=== PATIENT | female | born 1975 | race Caucasian/White ===

== ENCOUNTER → 2017-05-14 | Outpatient (CLI) | payer OTHER, MEDICAID ==
[~2017-05-14] MED LIST: ACET160E28 PO; AMOX500C2; AMOX500C2 PO; C250T PO; CHOL200035 PO; CPRH4T PO; DOXY100C42 PO; ESCI5TAB; ESCT10T; FLUC150T2 PO; HYDR25CA PO; IBP600T1 PO; KCL10CCR PO; KETO10TA77 PO; LACT1CAP62 PO; LORA0.5T PO; MIRT15TA6; NYST1000 PO; ONDA4TAB8 PO; ONDA8TAB12 PO; ONDAN4ODT PO; ONDN4T; ONDN4T PO; ORPH100T PO; OXYC-12 PO; PANT40SU PO; PEDI300T11 PO; PNT40TEC; RABE20TA PO; RABE20TA27 PO; SCP1.5TD TD; SUCR1ORA5 PO
[2017-05-14 18:17] LABS: BASOPHILS # (AUTO) 0.1 10^3/uL (0.0-0.1); BASOPHILS % (AUTO) 1 % (0-10); EOSINOPHILS # (AUTO) 0.1 10^3/uL (0.0-0.3); EOSINOPHILS % (AUTO) 1 % (0-10); LYMPHOCYTES # (AUTO) 2.6 X 10^3 (1.0-4.0); LYMPHOCYTES % (AUTO) 23 % (12-44); MEAN CORPUSCULAR HEMOGLOBIN 33 PG (25-34); MEAN CORPUSCULAR HGB CONC 35 G/DL (32-36); MEAN CORPUSCULAR VOLUME 93 FL (80-99); MEAN PLATELET VOLUME 10.6 FL (7.4-10.4); MONOCYTES # (AUTO) 0.5 X 10^3 (0.0-1.0); MONOCYTES % (AUTO) 4 % (0-12); NEUTROPHILS # (AUTO) 7.8 X 10^3 (1.8-7.8); NEUTROPHILS % (AUTO) 71 % (42-75); PLATELET COUNT 221 10^3/uL (130-400); RED BLOOD COUNT 4.98 10^6/uL (4.35-5.85); RED CELL DISTRIBUTION WIDTH 12.9 % (10.0-14.5)
[2017-05-14 18:18] LABS: BILIRUBIN,URINE NEGATIVE (NEGATIVE); KETONES,URINE NEGATIVE (NEGATIVE); LEUKOCYTE ESTERASE ,URINE 1+ (NEGATIVE); NITRITE,URINE NEGATIVE (NEGATIVE); PH,URINE 7 (5-9); PROTEIN,URINE NEGATIVE (NEGATIVE); UROBILINOGEN,URINE NORMAL (NORMAL)
[2017-05-14 18:33] LABS: ALANINE AMINOTRANSFERASE 9 U/L (0-55); ALBUMIN 4.9 GM/DL (3.2-4.5); ANION GAP 9 MMOL/L (5-14); ASPARTATE AMINO TRANSFERASE 14 U/L (5-34); BILIRUBIN,TOTAL 0.3 MG/DL (0.1-1.0); BLOOD UREA NITROGEN 11 MG/DL (7-18); BUN/CREATININE RATIO 15; CALCIUM 9.6 MG/DL (8.5-10.1); CARBON DIOXIDE 24 MMOL/L (21-32); CHLORIDE 107 MMOL/L (98-107); CREATININE SERUM 0.71 MG/DL (0.60-1.30); GFR ESTIMATED > 60; GLUCOSE 115 MG/DL (70-105); LIPASE 16 U/L (8-78); SODIUM 140 MMOL/L (135-145); TOTAL PROTEIN 7.3 GM/DL (6.4-8.2)
[2017-05-14 18:34] LABS: WBC,URINE RARE /HPF
[2017-05-14 18:47] LABS: ERYTHROCYTE SEDIMENTATION RATE 1 MM/HR (0-20)
== END ==
LOC: LAB 17:54
PROVIDERS: ATTEND Internal Medicine
DX: R10.13 Epigastric pain (principal); R11.2 Nausea with vomiting, unspecified
CPT/HCPCS: 36415; 80053; 81000; 83690; 85025; 85652

== ENCOUNTER → 2017-05-15 | Outpatient (CLI) | payer OTHER, MEDICAID ==
[~2017-05-15] MED LIST changes: -HYDR25CA PO; +IOHEXOL 350 MG/ML 100 ML (OMNIPAQUE 350) VIAL IV ONE; +NS 100 ML (IVPB) BAG IV ONE; -NYST1000 PO; -ONDA4TAB8 PO; -PANT40SU PO; -SUCR1ORA5 PO; +diphenhydrAMINE 50 MG/ML INJ (BENADRYL) IM ONE; +diphenhydrAMINE 50 MG/ML INJ (BENADRYL) ONE
--- NOTE | 2017-05-15 12:51 | Diagnostic Imaging Report ---
PROCEDURE: CT abdomen and pelvis with and without contrast. TECHNIQUE: Precontrast acquisitions were acquired through the abdomen and pelvis. Multiple contiguous axial images were obtained through the abdomen and pelvis after the administration of intravenous contrast. INDICATION: Severe abdominal pain. 100 mL of Omnipaque 350 is administered intravenously. COMPARISON: 08/25/2012. FINDINGS: The lung bases appear clear. The liver demonstrates a 6.7 cm mass in the right hepatic lobe with adjacent smaller mass more anteriorly measuring 2.6 cm. There are other lesions also noted in a more central location within the liver. These lesions all demonstrate prominent enhancement on the early phase with features in favor of hemangiomas. The spleen, the adrenal glands, the gallbladder, and the pancreas appear unremarkable. The kidneys have symmetric enhancement and contrast excretion. There is no hydronephrosis. The abdominal aorta is normal in caliber. No para-aortic significantly enlarged lymph nodes seen. There is suggestion of hysterectomy. No pelvic mass. No significant free fluid or fluid collection in the abdomen or pelvis is seen. There is no bowel obstruction. The osseous structures appear grossly unremarkable. IMPRESSION: There are multiple hepatic masses, the largest in the right hepatic lobe is 6.7 cm in size and demonstrates features compatible with hemangiomas. Dictated by: Dictated on workstation # [id number]
== END ==
LOC: RAD 11:02
PROVIDERS: ATTEND Nurse Practitioner Family
DX: R10.84 Generalized abdominal pain (principal)
CPT/HCPCS: 74178

== ENCOUNTER → 2017-05-15 | Outpatient (CLI) | payer OTHER, MEDICAID ==
[~2017-05-15] MED LIST changes: -IOHEXOL 350 MG/ML 100 ML (OMNIPAQUE 350) VIAL IV ONE; -NS 100 ML (IVPB) BAG IV ONE; -diphenhydrAMINE 50 MG/ML INJ (BENADRYL) IM ONE; -diphenhydrAMINE 50 MG/ML INJ (BENADRYL) ONE
--- NOTE | 2017-05-15 10:36 | Diagnostic Imaging Report ---
PROCEDURE: US abdomen complete. TECHNIQUE: Multiple Real-time grayscale images were obtained over the abdomen in various projections. INDICATION: Severe abdominal pain. FINDINGS: The pancreas appears unremarkable. The liver demonstrates a 5.9 x 5.9 x 5.5 cm hyperechoic well defined mass in the right hepatic lobe. This was seen on the 05/11/2012 CT scan with similar overall size, likely related to a hemangioma. There is hepatopetal flow in the portal vein. The gallbladder demonstrates no stones or wall thickening. The CBD is 2 mm in caliber. The sonographic Benitez sign is reportedly negative. The spleen is 8.3 cm in length. The abdominal aorta and IVC visualized portions appear unremarkable. The right kidney is 11.3 and the left kidney is 10.1 cm in length. No hydronephrosis or focal lesion. No fluid collection or significant free fluid is seen in the abdomen. IMPRESSION: The 5.9 cm right hepatic lobe mass is stable from the 2012 CT scan, likely related to a hemangioma. Dictated by: Dictated on workstation # [id number]
== END ==
LOC: RAD 09:24
PROVIDERS: ATTEND Nurse Practitioner Family
DX: R16.0 Hepatomegaly, not elsewhere classified (principal); R10.13 Epigastric pain
CPT/HCPCS: 76700

== ENCOUNTER 2017-05-16 10:30 | Inpatient (IN) | payer OTHER, MEDICAID ==
[~2017-05-16] VITALS: Ht 152.4 cm; Wt 45.4 kg
[~2017-05-16 10:30] MED LIST changes: -ACET160E28 PO; -CATHETER FLUSH 10 ML SYR IV PRN; -DOXY100C42 PO; -FLUC150T2 PO; -HYDR25CA PO; -LACT1CAP62 PO; -NYST1000 PO; -ONDA4TAB8 PO; -ONDA8TAB12 PO; -PANT40SU PO; -PEDI300T11 PO; -RABE20TA27 PO; -SUCR1ORA5 PO
[2017-05-16 13:05] VITALS: BP 110/64
[2017-05-16] MEDS ORDERED: AA 4.25% W/LYTES IN D5W IV SOL 1,000 ML IV SCH (13:30)
[2017-05-16] MEDS ORDERED: fentaNYL INJECTION 100 MCG/2 ML AMP IV PRN (13:30)
[2017-05-16] MEDS ORDERED: CATHETER FLUSH 10 ML SYR IV PRN (13:30)
[2017-05-16] MEDS ORDERED: ONDA8TAB12 PO (14:19)
[2017-05-16] MEDS ORDERED: RABE20TA27 PO (14:19)
[2017-05-16] MEDS ORDERED: ACET160E28 PO (14:19)
[2017-05-16] MEDS ORDERED: DOXY100C42 PO (14:19)
[2017-05-16 14:21] LABS: THYROID STIMULATING HORMONE 0.7 UIU/ML (0.35-4.94)
[2017-05-16] MEDS ORDERED: FLUC150T2 PO (14:23)
[2017-05-16] MEDS ORDERED: PEDI300T11 PO (14:33)
[2017-05-16] MEDS ORDERED: LACT1CAP62 PO (14:33)
[2017-05-16] MEDS: MAGNESIUM CITRATE 300 ML BTL PO SCH ×2 (15:18→20:02)
[2017-05-16] MEDS: ONDANSETRON 4 MG/2 ML (SDV) Z0FRAN IV PRN ×2 (15:29→21:23)
[2017-05-16 16:00] VITALS: BP 109/56
[2017-05-16] MEDS ORDERED: hydrOXYzine (VISTARIL) 25 MG CAP PO PRN (16:30)
[2017-05-16] MEDS: NYSTATIN ORAL SUSP 5 ML UDC PO SCH (18:30)
[2017-05-16 19:38] VITALS: BP 110/75
[2017-05-16] MEDS: NYSTATIN CREAM (MYCOSTATIN) 30 GM TUBE TP SCH (20:02)
[2017-05-16] MEDS ORDERED: APAP 325 MG/10.15 ML LIQ (TYLENOL) UDC PO PRN (21:00)
[2017-05-16] MEDS ORDERED: APAP 325 MG/10.15 ML LIQ (TYLENOL) UDC ONE (21:05)
[2017-05-16 21:16] VITALS: BP 105/65
[2017-05-17] VITALS: BP 111/74
[2017-05-17] MEDS: NYSTATIN ORAL SUSP 5 ML UDC PO SCH ×4 (00:04→16:34)
[2017-05-17 04:00] VITALS: BP 99/65
[2017-05-17] MEDS: ONDANSETRON 4 MG/2 ML (SDV) Z0FRAN IV PRN ×2 (04:11→16:33)
[2017-05-17 08:00] VITALS: BP 95/58
[2017-05-17] MEDS ORDERED: ONDANSETRON 4 MG/2 ML (SDV) Z0FRAN IVP ONE (08:45)
[2017-05-17] MEDS ORDERED: HURRICAINE EXT TUBE (BENZOCAINE) ONE (09:10)
[2017-05-17] MEDS ORDERED: MIDAZOLAM 2 MG/2 ML (VERSED) VIAL ONE ×4 (09:10)
[2017-05-17] MEDS ORDERED: fentaNYL INJECTION 100 MCG/2 ML AMP ONE (09:10)
[2017-05-17] MEDS ORDERED: NS IV 500 ML 500 ML ONE (09:11)
[2017-05-17] MEDS ORDERED: NS IV 500 ML 500 ML IV PRN (09:45)
[2017-05-17] MEDS: fentaNYL INJECTION 100 MCG/2 ML AMP IVP PRN ×2 (10:10→10:16)
[2017-05-17] MEDS: MIDAZOLAM 2 MG/2 ML (VERSED) VIAL IVP PRN ×2 (10:17→10:20)
--- NOTE | 2017-05-17 10:35 | Conscious Sedation/ASA ---
Conscious Sedation Pre-Proced Time Reviewed: 10:02 ASA Class: 2 Airway Mallampati Classification: (brevig mission appropriate class) I. II. III, IV Lungs Heart ASA score ASA 1: a normal healthy patient ASA 2: a patient with a mild systemic disease (mid diabetes, controlled hypertension, obesity ASA 3: a patient with a severe systemic disease that limits activity (angina , COPD, prior Myocardial infarction) ASA 4: a patient with an incapacitating disease that is a constant threat to life (CHF, renal failure) ASA 5: a moribund patient not expected to survive 24 hrs. (ruptured aneurysm) ASA 6: a declared brain patient whose organs are being harvested. For emergent operations, add the letter E after the classification Grade 2 Sedation Plan: Discussed options with patient/fam Note The patient is an appropriate candidate to undergo the planned procedure, sedation, and anesthesia. The patient immediately re-assessed prior to indication. COLIN PATRICIA MD May 17, 2017 10:35 am
--- NOTE | 2017-05-17 10:41 | Endo Procedure Record ---
Endo Procedure Report Date of Procedure May 17, 2017 Surgeon (s) COLIN PATRICIA MD Post Procedure/Op Diagnosis hiatal hernia. Multiple gastric erosions. 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 Multiple erosions at the proximal duodenum Procedure Performed EGD with biopsy of antrum and Description of Procedure Anesthesia Type: Conscious Sedation Specimen(s) collected/removed antral and duodenal mucosa Description of the Procedure Indication for procedure: This lady has been investigated for upper abdominal pain and nausea and profound weight loss over the past several months. Evaluation of the gallbladder has been negative. Multiple hemangiomas of the liver had been discovered. As part of the ongoing evaluation, an upper endoscopy was felt to be reasonable. Informed consent was obtained after reviewing the procedure in detail. Description of the procedure: She was placed in left lateral disposition in the ICU and her vital signs were monitored; conscious sedation was achieved using Versed and fentanyl. Her oropharynx was anesthetized Cetacaine and the flexible gastroscope introduced down the esophagus, past the stomach into the proximal duodenum. Findings: Esophagus: A short hiatal hernia with very minimal esophagitis. Stomach: Multiple shallow erosions were found along the body and the distal aspect of the stomach. In addition, it 2 mm AV malformation without any surface bleeding was found at the antrum. Photodocumentation and an antral biopsy for H. pylori were obtained. Duodenum: Changes of multiple erosions were found along the first part. Biopsy was obtained. She tolerated the procedure well and was taken back to the nursing area in a stable condition by the impression ongoing epigastric pain and nausea. Multiple gastric erosions. Helicobacter status pending Copies To: WILMAN LOPEZ XAVIER M MD May 17, 2017 10:41 am
[2017-05-17] MEDS ORDERED: HURRICAINE EXT TUBE (BENZOCAINE) XX PRN (10:45)
[2017-05-17 12:00] VITALS: BP 93/55
[2017-05-17] MEDS: PANTOPRAZOLE 40 MG/10 ML (PROTONIX) VIAL IV SCH ×3 (12:53→21:00)
[2017-05-17] MEDS: ONDANSETRON 4 MG/2 ML (SDV) Z0FRAN IVP PRN ×2 (12:54→20:22)
[2017-05-17] MEDS: SUCRALFATE 1 GM (CARAFATE) TAB PO SCH ×2 (12:54→20:21)
[2017-05-17] MEDS: POTASSIUM CHLORIDE INJ 20 MEQ in D5 LR IV SOLUTION 1,000 ML IV SCH ×2 (12:55→21:21)
[2017-05-17] MEDS: NYSTATIN CREAM (MYCOSTATIN) 30 GM TUBE TP SCH ×3 (12:55→20:28)
[2017-05-17] MEDS ORDERED: hydrOXYzine (VISTARIL) 25 MG CAP PO PRN (13:15)
--- NOTE | 2017-05-17 13:27 | Consultation-Hospitalist ---
HPI History of Present Illness: HPI/Chief Complaint CC: Inability to eat HPI: This is a 41 [address] Desai'monica who presented s/p endoscopy with Dr. Tobias and could not be discharged home due to inability to eat. 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 Pt was tested somewhere for tick born illness. These results were mixed, first negative then positive Pt seems very ill and she wonders if she could have more testing Pt's mom is with her and has a list of questions Pt had 4 anxiety attacks last night and thought she was having a heart attack Patient Interview: I informed the pt that I may not have all the answers Pt states she was tested for [place] Spotted Fever at an ER then at [facility]. Pt states that the first test was negative, then at [facility], she was positive. At this point, pt decided to start seeing Dr. Desai; her first visit was last Friday05/14/17. Pt states that Dr. Desai first thought she was having issues with her gallbladder, but tests on her gallbladder, liver, and pancreas were all fine. Pt states that Dr. Desai then ordered a scope. Pt confirms that Dr. Desai placed her on Doxy for 6 weeks, which she states she was unable to complete because she felt sick while taking them (pt took 2 days worth then stopped). Pt states that Dr. Desai was not notified that she is no longer taking the Doxy. Pt states that Dr. Desai also suggested pain meds for her. Pt's mother wondered if she could have IV abx since she is not able to take PO Doxy. It was suggested that the pt see a specialist and pt was advised to discuss this with Dr. Desai. Pt confirms having a scope with Dr. Tobias but she states she has not had much of an appetite. Colonoscopy was not completed because the pt could not tolerate the Mg++. Pt states she has lost nearly 10 lbs. Pt confirms smoking but denies ETOH usage. 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 Physical exam stable. Labs look good Pt's mother states that the pt's issues first started in [place], [place]. When seen there, the pt was diagnosed with arthritis and given muscle relaxers. Pt's mother then took her to [facility], and states that they said similar things. Pt was advised to follow up with Dr. Desai. Pt's mother also states that she has thrush, we will continue Nystatin Pt asked if she needed to test for tick illness again and pt was advised to ask Dr. Desai about this. Pt states that she was also tested for Lupus Pt states she appreciates the meds given to her for anxiety. Pt does not want Xanax, but pt liked the Dilaudid. Pt confirms feeling depressed. Pt's mother states pt has lots of allergies. Scribed by Alicia Parra under the direct supervision of Dr. Russ. Source: patient, family, caregiver Exam Limitations: no limitations Date Seen 05/17/17 Attending Physician Marcial Tobias MD PCP Duane Desai DO Referring Physician Date of Admission May 16, 2017 at 12:58 Home Medications & Allergies Home Medications Reviewed patient Home Medication Reconciliation Form Allergies Allergies Coded Allergies amoxicillin (Verified Allergy, Severe, NAUSEA/ YEAST INFECTION/ MOUTH SORES, ) clavulanic acid (Verified Allergy, Severe, NAUSEA/ YEAST INFECTION/ MOUTH SORES, 05/16/17) iodine (Verified Allergy, Mild, 05/17/17) lorazepam (Verified Allergy, Unknown, 02/03/09) metoclopramide HCl (Verified Allergy, Unknown, 05/17/17) mirtazapine (Verified Allergy, Unknown, 02/03/09) Past [id number]-Srojeh Hx Patient Social History Marrital Status: single Employed/Student: unemployed Alcohol Use: Denies Use Recreational Drug Use: No Smoking Status: Current Everyday Smoker Type Used: Cigarettes Physical Abuse Screen: No Sexual Abuse: No Recent Foreign Travel: No Contact w/other who traveled: No Recent Hopitalizations: Yes (MONO, ANAPHYLAXIS) Recent Infectious Disease Expo: No Seasonal Allergies Seasonal Allergies: No Surgeries Yes (MOLES REMOVED, EGD) Adenoidectomy, Hysterectomy, Oophorectomy, Tonsillectomy Respiratory No Currently Using CPAP: No Currently Using BIPAP: No Cardiovascular No Neurological No Reproductive System Hx Reproductive Disorders: Yes 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 Genitourinary No Gastrointestinal Yes Gastroesophageal Reflux Musculoskeletal No Endocrine History of Endocrine Disorders: No HEENT History of HEENT Disorders: No Loss of Vision: Denies Hearing Impairment: Denies Cancer No Psychosocial History of Psychiatric Problem: Yes Behavioral Health Disorders: Anxiety, Depression Integumentary History of Skin or Integumenta: No Blood Transfusions History of Blood Disorders: No Adverse Reaction to a Blood Tr: No Review of Systems Constitutional: see HPI, dizziness, malaise, weakness EENTM: no symptoms reported Respiratory: no symptoms reported Cardiovascular: no symptoms reported Gastrointestinal: see HPI, loss of appetite, nausea, vomiting Genitourinary: decreased output Musculoskeletal: back pain Skin: no symptoms reported Psychiatric/Neurological: No Symptoms Reported All Other Systems Reviewed Negative Unless Noted: Yes Physical Exam Physical Exam Vital Signs Vital Sign - Last 12Hours 05/16/17 13:05 Temp 98.9 Pulse 99 Resp 20 B/P (MAP) 110/64 Pulse Ox 99 O2 Delivery Room Air Capillary Refill : General Appearance: No Apparent Distress, WD/WN, Chronically ill, Thin Eyes: Bilateral Eye Normal Inspection, Bilateral Eye PERRL HEENT: PERRL/EOMI, Normal ENT Inspection, Pharynx Normal Neck: Full Range of Motion, Normal Inspection, Non Tender, Supple, Carotid Bruit Respiratory: Chest Non Tender, Lungs Clear, Normal Breath Sounds, No Accessory Muscle Use, No Respiratory Distress Cardiovascular: Regular Rate, Rhythm, No Edema, No Gallop, No JVD, No Murmur, Normal Peripheral Pulses Gastrointestinal: Normal Bowel Sounds, No Organomegaly, No Pulsatile Mass, Non Tender, Soft Back: Normal Inspection, No CVA Tenderness, No Vertebral Tenderness Extremity: Normal Capillary Refill, Normal Inspection, Normal Range of Motion, Non Tender, No Calf Tenderness, No Pedal Edema Neurologic/Psychiatric: Alert, Oriented x3, No Motor/Sensory Deficits, Depressed Affect Skin: Normal Color, Warm/Dry Lymphatic: No Adenopathy Assessment/Plan Admission Diagnosis Inability to eat Nausea, acute on chronic for the past 6 months Weight loss Tick-borne illness per patient Thrush/esophagitis Assessment and Plan Plan: Follow up with Dr. Desai 05/19/17 to perform more w/u Stomach erosions treatment Junito Gutierrez at [place] Conferred with Dr. Tobias and apologized that I did not have much more to add to the case given no acute issue that can be resolved during this hospital stay. Pt needs more w/u and may need feeding tube if is still unable to eat as time passes. Diagnosis/Problems Diagnosis/Problems (1) Nausea and vomiting in adult Status: Chronic Assessment & Plan: Multiple stomach erosions on EGD placed on appropriate treatment (2) Weight loss Status: Chronic (3) Thrush Status: Acute Assessment & Plan: Nystatin Clinical Quality Measures DVT/VTE Risk/Contraindication: Risk Factor Score Per Nursin RFS Level Per Nursing on Admit: 2=Moderate FATIMAH RUSS DO May 17, 2017 13:26
[2017-05-17 15:39] VITALS: BP 93/59
[2017-05-17 19:59] VITALS: BP 93/61
[2017-05-17] MEDS ORDERED: PANTOPRAZOLE 40 MG/10 ML (PROTONIX) VIAL IV SCH (21:00)
[2017-05-18] VITALS: BP 88/53
[2017-05-18] MEDS: NYSTATIN ORAL SUSP 5 ML UDC PO SCH ×4 (00:36→16:44)
[2017-05-18] MEDS: ONDANSETRON 4 MG/2 ML (SDV) Z0FRAN IVP PRN ×5 (00:37→20:42)
[2017-05-18] MEDS: POTASSIUM CHLORIDE INJ 20 MEQ in D5 LR IV SOLUTION 1,000 ML IV SCH (07:22)
[2017-05-18] MEDS: SUCRALFATE 1 GM (CARAFATE) TAB PO SCH ×3 (07:47→20:42)
[2017-05-18 08:00] VITALS: BP 98/63
[2017-05-18] MEDS ORDERED: INFLUENZA TRIvalent 2017-2018 0.5 ML/45 MCG SYR IM ONE (09:00)
[2017-05-18] MEDS ORDERED: FAMOTIDINE 20 MG (PEPCID) TABLET PO PRN (09:00)
[2017-05-18] MEDS: PANTOPRAZOLE 40 MG/10 ML (PROTONIX) VIAL IV SCH (09:01)
[2017-05-18] MEDS: NYSTATIN CREAM (MYCOSTATIN) 30 GM TUBE TP SCH ×3 (09:13→20:44)
[2017-05-18] MEDS: D5 LR W/KCL 20 MEQ/L 1,000 ML IV SCH ×2 (09:47→18:11)
[2017-05-18] MEDS ORDERED: PANTOPRAZOLE 40 MG/10 ML (PROTONIX) VIAL IV NR (13:30)
--- NOTE | 2017-05-18 15:29 | Progress Note (SOAP) ---
Subjective Date Seen by Provider: May 18, 2017 Time Seen by Provider: 14:15 Subjective/Events-last exam nausea slightly improved. Appetite unchanged. Reports having had bowel movements. Review of Systems General: Fatigue HEENT: No Head Aches, No Eye Pain, No Ear Pain, No Dysphasia, No Sinus Congestion, No Post Nasal Drip, No Sore Throat Pulmonary: No Dyspnea, No Cough, No Pleuritic Chest Pain Cardiovascular: No: Chest Pain, Palpitations, Orthopnea, Paroxysmal Noc. Dyspnea, Edema, Lt Headedness Gastrointestinal: Nausea, Abdominal Pain Genitourinary: Other Musculoskeletal: No: other, neck pain, shoulder pain, arm pain, back pain, hand pain, leg pain, foot pain Neurological: No: Weakness, Numbness, Incoordination, Change in speech, Confusion, Seizures, Other Objective Exam Vital Signs Date Time Temp Pulse Resp B/P (MAP) Pulse Ox O2 Delivery O2 Flow Rate FiO2 05/18/17 08:00 98.2 66 20 98/63 99 Room Air 05/18/17 00:00 96.8 64 18 88/53 95 Room Air 05/17/17 19:59 97.2 64 20 93/61 99 Room Air 05/17/17 15:39 97.7 68 22 93/59 97 Room Air Capillary Refill : General Appearance: Anxious, Moderate Distress HEENT: Normal ENT Inspection Neck: Normal Inspection Cardiovascular: Regular Rate, Rhythm Gastrointestinal: non tender, soft Extremity: Normal Inspection Neurologic/Psychiatric: Alert, Oriented x3 Skin: Warm/Dry Other comments intermittent tearfulness Results Lab lady with ongoing epigastric abdominal pain nausea and weight loss. I have suggested that she be discharged and a GI evaluation sought at [facility]. In the interim, supportive measures would be prescribed. The patient expressed her intention to think about my recommendation and confirm back. Assessment/Plan Assessment/Plan Assess & Plan/Chief Complaint lady with ongoing epigastric pain and anorexia and nausea. We will obtain an outpatient GI evaluation at [facility]. Final Diagnosis weight loss, epigastric pain, nausea Clinical Quality Measures DVT/VTE Risk/Contraindication: Risk Factor Score Per Nursin RFS Level Per Nursing on Admit: 2=Moderate COLIN PATRICIA MD May 18, 2017 3:29 pm
[2017-05-18] MEDS ORDERED: ONDA8TAB12 PO (15:31)
[2017-05-18] MEDS ORDERED: SUCR1ORA5 PO (15:31)
[2017-05-18] MEDS ORDERED: PANT40SU PO (15:31)
[2017-05-18] MEDS ORDERED: HYDR25CA PO (15:31)
[2017-05-18] MEDS ORDERED: NYST1000 PO (15:39)
[2017-05-18 16:00] VITALS: BP 100/58
[2017-05-18] MEDS ORDERED: PANTOPRAZOLE 40 MG/10 ML (PROTONIX) VIAL IV PRN (19:30)
[2017-05-19] VITALS: BP 95/60
[2017-05-19] MEDS: NYSTATIN ORAL SUSP 5 ML UDC PO SCH ×2 (00:14→06:12)
[2017-05-19] MEDS: ONDANSETRON 4 MG/2 ML (SDV) Z0FRAN IVP PRN ×2 (00:15→05:04)
[2017-05-19] MEDS: D5 LR W/KCL 20 MEQ/L 1,000 ML IV SCH (05:04)
[2017-05-19 07:53] VITALS: BP 94/56
[2017-05-19] MEDS: NYSTATIN CREAM (MYCOSTATIN) 30 GM TUBE TP SCH (08:03)
[2017-05-19] MEDS: SUCRALFATE 1 GM (CARAFATE) TAB PO SCH (08:03)
[2017-05-19] MEDS ORDERED: ONDANSETRON 4 MG (ZOFRAN) ORAL DISSOLVE TAB ONE (08:41)
[2017-05-19] MEDS ORDERED: ONDA4TAB8 PO (08:45)
[2017-05-19] MEDS ORDERED: ONDANSETRON 4 MG (ZOFRAN) ORAL DISSOLVE TAB PO NR (08:45)
--- NOTE | 2017-05-19 16:24 | Discharge Summary ---
Diagnosis/Chief Complaint Date of Admission May 16, 2017 at 12:58 Date of Discharge May 19, 2017 at 10:25 Discharge Date: May 19, 2017 Discharge Time: 10:40 Admission Diagnosis Admission Diagnosis epigastric pain, weight loss nausea Discharge Diagnosis gastric erosions. weight loss Reason Hospital Visit admitted from the office with ongoing epigastric pain, nausea and profound weight loss over a 6 month. Thyroid function found to be within normal limits. Upper endoscopy was planned after intravenous fluid hydration Discharge Summary Procedures upper endoscopy revealed multiple gastric and duodenal erosions. Treated with IV Protonix Consultations Gen. medical consultation with Dr. Devika West Discharge Physical Examination Allergies: Coded Allergies: amoxicillin (Verified Allergy, Severe, NAUSEA/ YEAST INFECTION/ MOUTH SORES, 05/16/17) clavulanic acid (Verified Allergy, Severe, NAUSEA/ YEAST INFECTION/ MOUTH SORES, 05/16/17) iodine (Verified Allergy, Mild, 05/17/17) lorazepam (Verified Allergy, Unknown, 02/03/09) metoclopramide HCl (Verified Allergy, Unknown, 05/17/17) mirtazapine (Verified Allergy, Unknown, 02/03/09) Vitals & I&Os Vital Signs Date Time Temp Pulse Resp B/P (MAP) Pulse Ox O2 Delivery O2 Flow Rate FiO2 05/19/17 08:00 Room Air 05/19/17 07:53 98.9 57 12 94/56 97 Hospital Course Labs (last 24 hrs) Laboratory Tests 05/16/17 13:40: Thyroid Stimulating Hormone (TSH) 0.70, Free Thyroxine 1.05, Thyroxine (T4) 8.9 Pending Labs Laboratory Tests 05/16/17 13:40: Thyroid Stimulating Hormone (TSH) 0.70, Free Thyroxine 1.05, Thyroxine (T4) 8.9 Discussion & Recommendations intravenous fluids with electrolytes administered. Zofran Protonix and Hydroxyzine to manage her anxiety described. An outpatient evaluation by a precision assembler at [facility] scheduled Discharge Home Medications: Active Scripts Active Zofran Odt (Ondansetron) 4 Mg Tab.rapdis 4 Mg PO Q6H Nystatin 100,000 Unit/1 Ml Oral.susp 5 Ml PO Q6HR 5 Days Vistaril (Hydroxyzine Pamoate) 25 Mg Capsule 25 Mg PO TID PRN Carafate (Sucralfate) 1 Gm/10 Ml Oral.susp 1 Gm PO TID 9 Days Protonix (Pantoprazole Sodium) 40 Mg Granpkt.dr 40 Mg PO BID 60 Days Ondansetron HCl 8 Mg Tablet 4 Mg PO Q6H PRN TAKES 1/2 (8MG) TABLET Reported Probiotic (Lactobacillus Acidophilus) 1 Each Capsule 1 Cap PO DAILY Flintstones Multivit Chew Tab (Pediatric Multivit Comb #25/FA) 300 Mcg Tab.chew 300 Mcg PO DAILY Doxycycline Monohydrate 100 Mg Capsule 100 Mg PO BID 14 DAY THEARPY FILLED 05-10-17 Acetaminophen 160 Mg/5 Ml Elixir 15 Ml PO Q4H PRN Instructions to patient/family Please see electronic discharge instructions given to patient. Diagnosis/Problems Diagnosis/Problems (1) Nausea and vomiting in adult Status: Chronic Assessment & Plan: Multiple stomach erosions on EGD placed on appropriate treatment (2) Weight loss Status: Chronic (3) Thrush Status: Acute Assessment & Plan: Nystatin Clinical Quality Measures DVT/VTE Risk/Contraindication: Risk Factor Score Per Nursin RFS Level Per Nursing on Admit: 2=Moderate COLIN PATRICIA MD May 19, 2017 16:24
== END 2017-05-19 10:25 | disposition home or self-care (01) | DRG 384 ==
LOC: 4TH 12:58
PROVIDERS: ADMIT Surgery; ATTEND Surgery
PROC: 0DB78ZX Excision of Stomach, Pylorus, Via Natural or Artificial Opening Endoscopic, Diagnostic (ICD-10-PCS; principal; 2017-05-17 10:00)
DX: K25.7 Chronic gastric ulcer without hemorrhage or perforation (principal); K26.7 Chronic duodenal ulcer without hemorrhage or perforation; E86.0 Dehydration; Q27.33 Arteriovenous malformation of digestive system vessel; K44.9 Diaphragmatic hernia without obstruction or gangrene; B37.0 Candidal stomatitis; F41.9 Anxiety disorder, unspecified; K21.9 Gastro-esophageal reflux disease without esophagitis; F17.210 Nicotine dependence, cigarettes, uncomplicated
CPT/HCPCS: 36415; 84436; 84439; 84443

== ENCOUNTER → 2017-05-16 | Outpatient (CLI) | payer OTHER, MEDICAID ==
[~2017-05-16] MED LIST changes: +CATHETER FLUSH 10 ML SYR IV PRN; +HYDR25CA PO; +NYST1000 PO; +ONDA4TAB8 PO; +PANT40SU PO; +SUCR1ORA5 PO
--- NOTE | 2017-05-16 09:14 | Diagnostic Imaging Report ---
EXAMINATION: HIDA with EF measurements Indication: Abdominal pain TECHNIQUE: After the intravenous administration of 4.6 mCi of Tc 99m Choletec, imaging over the abdomen was obtained. This was followed by administration of Ensure orally to stimulate intrinsic CCK secretion, followed by continued imaging with ejection fraction measured. FINDINGS: There is homogeneous uptake in the liver with prompt bile duct and gallbladder filling seen. Bowel activity is seen at 20 minutes. Based on further imaging and gallbladder area of interest activity measurements after the administration of Ensure, the gallbladder ejection fraction is estimated at 44%. IMPRESSION: 1. Normal hepatobiliary uptake and Gallbladder filling. 2. Borderline gallbladder ejection fraction. Correlate clinically. Dictated by: Dictated on workstation # [id number]
== END ==
LOC: CARD 06:33
PROVIDERS: ATTEND Internal Medicine
DX: R10.13 Epigastric pain (principal)
CPT/HCPCS: 78227

== ENCOUNTER 2017-09-30 15:50 | Outpatient (RCR) | payer MEDICAID ==
[~2017-09-30 15:50] MED LIST changes: +ACET160E28 PO; +DOXY100C42 PO; +FLUC150T2 PO; +HYDR25CA PO; +LACT1CAP62 PO; +NYST1000 PO; +ONDA4TAB8 PO; +ONDA8TAB12 PO; +PANT40SU PO; +PEDI300T11 PO; +RABE20TA27 PO; +SUCR1ORA5 PO
== END 2017-12-04 11:38 | disposition home or self-care (01) ==
PROVIDERS: ATTEND Internal Medicine
DX: S43.422A Sprain of left rotator cuff capsule, initial encounter (principal); X58.XXXA Exposure to other specified factors, initial encounter

== ENCOUNTER → 2017-10-04 | Outpatient (CLI) | payer MEDICAID | LOC: RAD 10:27 | PROVIDERS: ATTEND Internal Medicine | DX: Z53.8 Procedure and treatment not carried out for other reasons (principal); S46.002A Unspecified injury of muscle(s) and tendon(s) of the rotator cuff of left shoulder, initial encounter ==

== ENCOUNTER → 2017-10-14 | Outpatient (CLI) | payer MEDICAID ==
--- NOTE | 2017-10-14 12:59 | Diagnostic Imaging Report ---
INDICATION: Left shoulder pain. Rotator cuff injury. COMPARISON: None. FINDINGS: Three radiographic views of left shoulder were obtained. There is no evidence of acute fracture or dislocation. Joint spaces are maintained. Note is made of extraosseous calcification projecting superior to the lateral margins of the humeral head, presumably within the supraspinatus tendon. Included portions of the left lung are clear. No unexpected radiopaque foreign bodies are seen. IMPRESSION: 1. No evidence of acute fracture or dislocation of left shoulder. 2. Probable calcific tendinosis of the supraspinatus. Findings can be seen with underlying hydroxyapatite disease. Clinical correlation recommended. Dictated by: Dictated on workstation # [id number]
== END ==
LOC: RAD 11:58
PROVIDERS: ATTEND Internal Medicine
DX: S46.002A Unspecified injury of muscle(s) and tendon(s) of the rotator cuff of left shoulder, initial encounter (principal)
CPT/HCPCS: 73030

== ENCOUNTER 2019-08-11 15:27 | Emergency (ER) | payer MEDICAID ==
[~2019-08-11] VITALS: Ht 155 cm; Wt 50.9 kg
[~2019-08-11 15:27] MED LIST changes: -ACET160E28 PO; +ACET160E50 PO
[2019-08-11] MEDS ORDERED: RX-AMOXICILLIN 500 MG CAP #3 PPK PO STA (15:53)
[2019-08-11] MEDS ORDERED: RX-IBUPROFEN 600 MG (MOTRIN) TAB PPK#4 PO STA (15:53)
[2019-08-11] MEDS ORDERED: LIDOCAINE 2% VISCOUS 15 ML UDC PO ONE (16:00)
[2019-08-11] MEDS ORDERED: IBUP-1780 PO (16:00)
[2019-08-11] MEDS ORDERED: AMOX500C2 PO (16:00)
--- NOTE | 2019-08-11 16:00 | ED EENT ---
History of Present Illness General Chief Complaint: Dental Problems/Pain Stated Complaint: DENTAL PAIN Nursing Triage Note: Pt amb to triage with c/o upper Lt molar discomfort. Pt reports onset of symptoms to be 08/10/19. Pt reports to be applying topical anbelsol with little relief. Denies fever. Source: patient Exam Limitations: no limitations History of Present Illness Date Seen by Provider: Aug 11, 2019 Time Seen by Provider: 15:55 Initial Comments To ER with left upper molar pain since last night. Her dentist is Dr. Dc. Timing/Duration: abrupt Severity: moderate Location: dental Associated Symptoms: tooth pain Allergies and Home Medications Allergies Coded Allergies: clindamycin (Verified Allergy, Intermediate, 08/11/19) cephalexin (Verified Allergy, Mild, 08/11/19) iodine (Verified Allergy, Mild, 05/17/17) lorazepam (Verified Allergy, Unknown, 02/03/09) metoclopramide HCl (Verified Allergy, Unknown, 05/17/17) mirtazapine (Verified Allergy, Unknown, 02/03/09) Home Medications Acetaminophen 160 Mg/5 Ml Elixir, 15 ML PO Q4H PRN for PAIN-MILD, (Reported) Amoxicillin 500 Mg Capsule, 500 MG PO TID Prescribed by: MARLEN OWEN on 08/11/19 1600 Doxycycline Monohydrate 100 Mg Capsule, 100 MG PO BID, (Reported) 14 DAY THEARPY FILLED 05-10-17 Hydroxyzine Pamoate 25 Mg Capsule, 25 MG PO TID PRN for ANXIETY Prescribed by: KOLBY ROSS on 05/18/17 153 Ibuprofen 800 Mg Tablet, 800 MG PO Q8H PRN for PAIN-MILD Prescribed by: MARLEN OWEN on 08/11/19 1600 Lactobacillus Acidophilus 1 Each Capsule, 1 CAP PO DAILY, (Reported) Nystatin 100,000 Unit/1 Ml Oral.susp, 5 ML PO Q6HR Prescribed by: KOLBY ROSS on 05/18/17 153 Ondansetron 4 Mg Tab.rapdis, 4 MG PO Q6H Prescribed by: LUCILLE HANSEN on 05/19/17 0845 Ondansetron HCl 8 Mg Tablet, 4 MG PO Q6H PRN for NAUSEA/VOMITING-1ST LINE TAKES 1/2 (8MG) TABLET Prescribed by: KOLBY ROSS on 05/18/17 153 Pantoprazole Sodium 40 Mg Granpkt.dr, 40 MG PO BID Prescribed by: KOLBY ROSS on 05/18/17 1531 Pediatric Multivit Comb #25/FA 300 Mcg Tab.chew, 300 MCG PO DAILY, (Reported) Sucralfate 1 Gm/10 Ml Oral.susp, 1 GM PO TID Prescribed by: KOLBY ROSS on 05/18/171530 Patient Home Medication List Home Medication List Reviewed: Yes Review of Systems Review of Systems Constitutional: see HPI Eyes: No Symptoms Reported Ears: No Symptoms Reported Nose: no symptoms reported Mouth: see HPI, pain Throat: no symptoms reported Respiratory: no symptoms reported Cardiovascular: no symptoms reported Musculoskeletal: no symptoms reported Past Frqirzq-Hfkbrh-Flqimv Hx Patient Social History Alcohol Use: Denies Use Recreational Drug Use: No Smoking Status: Current Everyday Smoker Type Used: Cigarettes 2nd Hand Smoke Exposure: Yes Recent Foreign Travel: No Contact w/Someone Who Travel: No Recent Infectious Disease Expo: No Recent Hopitalizations: Yes (MONO, ANAPHYLAXIS) Immunizations Up To Date Tetanus Booster (TDap): Unknown Seasonal Allergies Seasonal Allergies: No Past Medical History Surgeries: Yes (MOLES REMOVED, EGD) Adenoidectomy, Hysterectomy, Oophorectomy, Tonsillectomy Respiratory: No Currently Using CPAP: No Currently Using BIPAP: No Cardiac: No Neurological: No 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 0.0oz. 45.585737si; 21.00 BMI Method:Stated General Appearance: WD/WN, no apparent distress Eyes: bilateral eye normal inspection, bilateral eye PERRL, bilateral eye EOMI Ears: bilateral ear auricle normal, bilateral ear canal normal, bilateral ear TM normal Mouth/Throat: pharynx normal; No mandibular swelling, No maxillary swelling, No trismus; other (left upper molar with noted caries, no palpable fluctuant abscess. ) Neck: non-tender, full range of motion Respiratory: no respiratory distress, no accessory muscle use Gastrointestinal: normal bowel sounds, non tender Neurologic/Psychiatric: alert, normal mood/affect, oriented x 3 Skin: normal color, warm/dry Progress/Results/Core Measures Results/Orders My Orders Orders - MARLEN OWEN APRN Rx-Ibuprofen (Rx-Motrin) (08/11/19 15:53) Rx-Amoxicillin Capsule (Rx-Polymox Capsu (08/11/19 15:53) Lidocaine 2% Viscous 15 Ml (Xylocaine Vi (08/11/19 16:00) Medications Given in ED Current Medications Medications Dose Ordered Sig/Jerson Route Start Time Stop Time Status Last Admin Dose Admin Lidocaine HCl 5 ml ONCE ONCE PO 08/11/19 16:00 08/11/19 16:01 DC 08/11/19 16:00 5 ML Vital Signs/I&O 08/11/19 15:30 Temp 36.8 Pulse 79 Resp 17 B/P (MAP) 107/75 (86) Pulse Ox 99 O2 Delivery Room Air Blood Pressure Mean: 86 Departure Impression Primary Impression: Dental caries Additional Impression: Pain, dental Disposition: HOME, SELF-CARE Condition: Improved Departure-Patient Inst. Decision time for Depature: 15:58 Referrals: WILMAN LOPEZ DO (PCP/Family) Primary Care Physician Patient Instructions: Dental Pain (DC) Add. Discharge Instructions: Call Dr. Dc tomorrow morning to make an appointment to be seen. Medication as directed. All discharge instructions reviewed with patient and/or family. Voiced understanding. Scripts Benzocaine (Anesthetic Oral Gel) 14 Gm Gel..gram. 14 GM MM TID PRN for PAIN-MILD (1-4), #1 TUBE Prov: MARLEN OWEN APRN 08/11/19 Ibuprofen (Ibuprofen) 800 Mg Tablet 800 MG PO Q8H PRN for PAIN-MILD, #30 TAB Prov: MARLEN OWEN APRN 08/11/19 Amoxicillin (Amoxicillin) 500 Mg Capsule 500 MG PO TID, #21 CAP 0 Refills Prov: MARLEN OWEN APRN 08/11/19 MARLEN OWEN APRN Aug 11, 2019 16:00
[2019-08-11 16:06] VITALS: BP 107/75
[2019-08-11] MEDS ORDERED: BENZ14GE MM (16:07)
== END 2019-08-11 16:06 | disposition home or self-care (01) ==
LOC: EDUNIT# 15:27 → ER 15:28
DX: K02.9 Dental caries, unspecified (principal); F41.9 Anxiety disorder, unspecified; F32.9 Major depressive disorder, single episode, unspecified; K21.9 Gastro-esophageal reflux disease without esophagitis; F17.210 Nicotine dependence, cigarettes, uncomplicated; Z90.89 Acquired absence of other organs; Z90.710 Acquired absence of both cervix and uterus; Z88.1 Allergy status to other antibiotic agents; Z88.8 Allergy status to other drugs, medicaments and biological substances
CPT/HCPCS: 99283

== ENCOUNTER 2019-08-15 09:37 | Emergency (ER) | payer MEDICAID ==
[~2019-08-15] VITALS: Ht 160 cm; Wt 59.0 kg
[~2019-08-15 09:37] MED LIST changes: +BENZ14GE MM; +IBUP-1780 PO
[2019-08-15 09:40] VITALS: BP 122/81
[2019-08-15] MEDS ORDERED: LIDO15SO2 (09:48)
[2019-08-15] MEDS ORDERED: KETOROLAC 30 MG/ML VIAL IVP ONE (10:00)
[2019-08-15] MEDS ORDERED: cefTRIAXone FOR IV USE 1,000 MG in WATER (STERILE) FOR INJECTION 10 ML IV ONE (10:00)
[2019-08-15] MEDS ORDERED: LACTATED RINGERS 1,000 ML IV ONE (10:01)
--- NOTE | 2019-08-15 10:04 | ED EENT ---
History of Present Illness General Chief Complaint: Dental Problems/Pain Stated Complaint: DENTAL PAIN Nursing Triage Note: ARRIVED VIA AMB TO TRIAGE WITH COMPLAINTS OF LEFT UPPER DENTAL PAIN. STATES SHE WAS SEEN HERE ON AND THE AUGMENTIN IS NOT BETTER. UNABLE TO GET INTO A DENTIST. Source: patient, family Exam Limitations: no limitations History of Present Illness Date Seen by Provider: Aug 15, 2019 Time Seen by Provider: 09:54 Initial Comments Patient presents to ER by private conveyance with chief complaint that she's having dental pain from a tooth on her left upper maxilla and has tried multiple placed again with the dentist and cannot get in before 26 August. She was seen here Friday of last week, 5 days ago and started on amoxicillin. Since that time she feels the swelling is gotten worse since having a hard time swallowing fluids but no hard time breathing. She has not have any immunocompromise. She's been using ibuprofen and Tylenol as well as topical lidocaine with minimal relief. Allergies and Home Medications Allergies Coded Allergies: latex (Verified Allergy, Severe, rash, 08/15/19) clindamycin (Verified Allergy, Intermediate, 08/11/19) cephalexin (Verified Allergy, Mild, 08/11/19) iodine (Verified Allergy, Mild, 05/17/17) lorazepam (Verified Allergy, Unknown, 02/03/09) metoclopramide HCl (Verified Allergy, Unknown, 05/17/17) mirtazapine (Verified Allergy, Unknown, 02/03/09) amoxicillin (Verified Adverse Reaction, Severe, nausea, 08/15/19) clavulanic acid (Verified Adverse Reaction, Severe, nausea, 08/15/19) Patient Home Medication List Home Medication List Reviewed: Yes Review of Systems Review of Systems Constitutional: No chills, No diaphoresis Eyes: Denies Blindness, Denies Blurred Vision Ears: Denies Dizziness, Denies Pain Nose: denies clots, denies congestion Mouth: see HPI Throat: denies pain, denies swelling; painful swallowing, difficulty with fluids Respiratory: No cough, No short of breath Cardiovascular: No chest pain, No edema Past Hshicfn-Jjnsrf-Mcdrkz Hx Patient Social History Alcohol Use: Denies Use Recreational Drug Use: No Smoking Status: Current Everyday Smoker Type Used: Cigarettes 2nd Hand Smoke Exposure: Yes Recent Foreign Travel: No Contact w/Someone Who Travel: No Recent Infectious Disease Expo: No Recent Hopitalizations: Yes (MONO, ANAPHYLAXIS) Immunizations Up To Date Tetanus Booster (TDap): Unknown Seasonal Allergies Seasonal Allergies: No Past Medical History Surgeries: Yes (MOLES REMOVED, EGD) Adenoidectomy, Hysterectomy, Oophorectomy, Tonsillectomy Respiratory: No Currently Using CPAP: No Currently Using BIPAP: No Cardiac: No Neurological: No 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 0.0oz. 45.270502pp; 23.00 BMI Method:Stated General Appearance: WD/WN, no apparent distress Eyes: bilateral eye normal inspection, bilateral eye PERRL, bilateral eye EOMI Ears: bilateral ear auricle normal, bilateral ear canal normal, bilateral ear TM normal Nose: normal inspection; No active bleeding Mouth/Throat: other (soft tissue swelling of the buccal tissues left side, large 2 cm submandibular lymph nodes felt on the left side that is tender. Dental caries) Neck: full range of motion, supple, lymphadenopathy (L), tender lateral Cardiovascular: normal peripheral pulses, regular rate, rhythm Respiratory: no respiratory distress, no accessory muscle use Gastrointestinal: normal bowel sounds, non tender, soft Neurologic/Psychiatric: alert, normal mood/affect, oriented x 3 Skin: normal color, warm/dry Progress/Results/Core Measures Results/Orders Lab Results Laboratory Tests Test 08/15/19 10:10 Range/Units White Blood Count 9.6 4.3-11.0 10^3/uL Red Blood Count 4.60 4.35-5.85 10^6/uL Hemoglobin 14.7 11.5-16.0 G/DL Hematocrit 43 35-52 % Mean Corpuscular Volume 94 80-99 FL Mean Corpuscular Hemoglobin 32 25-34 PG Mean Corpuscular Hemoglobin Concent 34 32-36 G/DL Red Cell Distribution Width 13.4 10.0-14.5 % Platelet Count 173 130-400 10^3/uL Mean Platelet Volume 10.4 7.4-10.4 FL Neutrophils (%) (Auto) 73 42-75 % Lymphocytes (%) (Auto) 17 12-44 % Monocytes (%) (Auto) 7 0-12 % Eosinophils (%) (Auto) 2 0-10 % Basophils (%) (Auto) 0 0-10 % Neutrophils # (Auto) 7.0 1.8-7.8 X 10^3 Lymphocytes # (Auto) 1.7 1.0-4.0 X 10^3 Monocytes # (Auto) 0.7 0.0-1.0 X 10^3 Eosinophils # (Auto) 0.2 0.0-0.3 10^3/uL Basophils # (Auto) 0.0 0.0-0.1 10^3/uL Sodium Level 140 135-145 MMOL/L Potassium Level 4.1 3.6-5.0 MMOL/L Chloride Level 108 H 98-107 MMOL/L Carbon Dioxide Level 20 L 21-32 MMOL/L Anion Gap 12 5-14 MMOL/L Blood Urea Nitrogen 11 7-18 MG/DL Creatinine 0.67 0.60-1.30 MG/DL Estimat Glomerular Filtration Rate > 60 BUN/Creatinine Ratio 16 Glucose Level 108 H 70-105 MG/DL Calcium Level 9.0 8.5-10.1 MG/DL Corrected Calcium 8.8 8.5-10.1 MG/DL Total Bilirubin 0.5 0.1-1.0 MG/DL Aspartate Amino Transf (AST/SGOT) 12 5-34 U/L Alanine Aminotransferase (ALT/SGPT) 8 0-55 U/L Alkaline Phosphatase 53 40-136 U/L Total Protein 6.1 L 6.4-8.2 GM/DL Albumin 4.3 3.2-4.5 GM/DL My Orders Orders - BAL TORRES Ct Neck (Soft Tissue) W (08/15/19 10:00) Ketorolac Injection (Toradol Injection) (08/15/19 10:00) Ceftriaxone For Iv Use (Rocephin For I (08/15/19 10:00) Cbc With Automated Diff (08/15/19 10:01) Comprehensive Metabolic Panel (08/15/19 10:01) Ed Iv/Invasive Line Start (08/15/19 10:01) Lactated Ringers (Lr 1000 Ml Iv Solution (08/15/19 10:01) Lidocaine 2% Viscous 15 Ml (Xylocaine Vi (08/15/19 10:15) Iohexol Injection (Omnipaque 350 Mg/Ml 1 (08/15/19 11:00) Received Contrast (Hold Metformin- Contr (08/15/19 11:00) Ns (Ivpb) (Sodium Chloride 0.9% Ivpb Bag (08/15/19 11:00) Medications Given in ED Current Medications Medications Dose Ordered Sig/Jerson Route Start Time Stop Time Status Last Admin Dose Admin Ceftriaxone Sodium 1000 mg/ Sterile Water 10 ml @ 200 mls/hr ONCE ONCE IV 08/15/19 10:00 08/15/19 10:02 DC 08/15/19 10:16 200 MLS/HR Iohexol 75 ml ONCE ONCE IV 08/15/19 11:00 08/15/19 11:01 DC 08/15/19 11:01 75 ML Ketorolac Tromethamine 30 mg ONCE ONCE IVP 08/15/19 10:00 08/15/19 10:02 DC 08/15/19 10:16 30 MG Lactated Ringer's 1,000 ml @ 0 mls/hr Q0M ONCE IV 08/15/19 10:01 08/15/19 10:03 DC 08/15/19 10:16 1,000 MLS/HR Lidocaine HCl 5 ml ONCE ONCE PO 08/15/19 10:15 08/15/19 10:16 DC 08/15/19 10:15 5 ML Sodium Chloride 100 ml ONCE ONCE IV 08/15/19 11:00 08/15/19 11:01 DC 08/15/19 11:02 80 ML Vital Signs/I&O 08/15/19 09:40 Temp 36.6 Pulse 87 Resp 16 B/P (MAP) 122/81 (95) Pulse Ox 100 O2 Delivery Room Air Blood Pressure Mean: 95 Progress Progress Note : Time: 11:40 Progress Note Give her a shot of Toradol Rocephin check some labs and got a CT of her soft tissues of her neck with IV contrast. A liter fluids for contrast clearance and possible dehydration. She's feeling a little better. She has a large lymph node but no abscess seen on CT. Labs and vital signs are aseptic. We'll encourage sports drinks, protein drinks, give her some Tylenol with Codeine and hurricane spray as well as encourage her to follow-up with the dentist and extend her amoxicillin for another week. Diagnostic Imaging Diagonstic Imaging: CT Plain Films/CT/US/NM/MRI: abdomen, pelvis Comments NAME: MARIA L SMITH [facility] REC#: [id number] PT STATUS: REG ER : 1975 PHYSICIAN: BAL TORRES MD ADMIT DATE: 08/15/19/ER Draft Date of Exam:08/15/19 CT NECK (SOFT TISSUE) W PROCEDURE: CT neck soft tissue with contrast. TECHNIQUE: Multiple contiguous axial images were obtained through the neck after the administration of contrast. Auto Exposure Controls were utilized during the CT exam to meet ALARA standards for radiation dose reduction. INDICATION: Left upper dental pain. FINDINGS: No definite apical root abscesses are demonstrated. No destructive bony changes. There is some dental caries present with amalgam noted in the molars within the maxilla and mandible. No evidence of soft tissue edema or abscesses. The paranasal sinuses are clear. The parapharyngeal tissue planes appear normal. The parotid and submandibular glands appear normal. There is an enlarged lymph node anterior to the left submandibular gland measuring 1.5 x 0.7 cm. Epiglottis appears normal. Larynx is normal. There is benign calcification noted in the left lobe of the thyroid. There is good opacification of the cervical vessels following IV contrast. There is homogeneous enhancement of the thyroid gland. Reconstructed images show normal appearing cervical spine. IMPRESSION: 1. No evidence of dental abscesses or soft tissue abscess. 2. There is a single enlarged lymph node just anterior to the left submandibular gland measuring 1.5 x 0.7 cm. Dictated on workstation # [id number] Dict: 08/15/19 1107 Trans: 08/15/[address] [facility] [id number] Interpreted by: ARIEL BABCOCK MD Electronically signed by: Reviewed: Reviewed by Me Departure Impression Primary Impression: Dental abscess Additional Impression: Submandibular lymphadenopathy Disposition: 01 HOME, SELF-CARE Condition: Stable Departure-Patient Inst. Decision time for Depature: 11:35 Referrals: WILMAN LOPEZ DO (PCP/Family) Primary Care Physician Patient Instructions: Dental Pain (DC) Add. Discharge Instructions: Alternate warm and cold compresses as necessary for pain relief. Tylenol 325-650 mg every 6 hours as needed for pain. Choose ibuprofen 800 mg every 8 hours or naproxen 500 mg twice daily as needed for pain. Tylenol 1 tablet every 6 hours as needed for breakthrough pain. Viscous lidocaine 5 mL along with one puff of Hurricaine spray on a piece of gauze applied to complete the tooth for pain every 6 hours as needed. Salt water gargles to help decrease the swelling in your mouth. Drink sports drinks and protein drinks. Return to the ER immediately if you have difficulty breathing or cannot get fluids down. Keep your follow-up appointment with dentist. Amoxicillin 500 mg 3 times a day. All discharge instructions reviewed with patient and/or family. Voiced understanding. Scripts Naproxen (Naprosyn) 500 Mg Tablet 500 MG PO BID, #30 TAB 0 Refills Prov: BAL TORRES 08/15/19 Amoxicillin (Amoxicillin) 500 Mg Capsule 500 MG PO TID for 7 Days, #21 CAP 0 Refills Prov: BAL TORRES 08/15/19 Acetaminophen with Codeine (Tylenol with Codeine #3 Tablet) 1 Each Tablet 1 EACH PO Q6H PRN for PAIN-BREAKTHROUGH, #20 TAB 0 Refills Prov: BAL TORRES 08/15/19 [viscous lidocaine] 2% No Conflict Check 5 ML TOP Q6H PRN for PAIN-BREAKTHROUGH for 7 Days, #100 GM 0 Refills Prov: BAL TORRES 08/15/19 Benzocaine (Hurricaine) 60 Ml [place] 1 ML PUFF Q6H PRN for PAIN-BREAKTHROUGH for 7 Days, #1 EA 0 Refills Prov: BAL TORRES 08/15/19 BAL TORRES Aug 15, 2019 10:04
[2019-08-15] MEDS ORDERED: LIDOCAINE 2% VISCOUS 15 ML UDC PO ONE (10:15)
[2019-08-15 10:17] LABS: BASOPHILS % (AUTO) 0 % (0-10); EOSINOPHILS # (AUTO) 0.2 10^3/uL (0.0-0.3); EOSINOPHILS % (AUTO) 2 % (0-10); HEMATOCRIT 43 % (35-52); HEMOGLOBIN 14.7 G/DL (11.5-16.0); LYMPHOCYTES # (AUTO) 1.7 X 10^3 (1.0-4.0); LYMPHOCYTES % (AUTO) 17 % (12-44); MEAN CORPUSCULAR HEMOGLOBIN 32 PG (25-34); MEAN CORPUSCULAR HGB CONC 34 G/DL (32-36); MEAN CORPUSCULAR VOLUME 94 FL (80-99); MEAN PLATELET VOLUME 10.4 FL (7.4-10.4); MONOCYTES # (AUTO) 0.7 X 10^3 (0.0-1.0); MONOCYTES % (AUTO) 7 % (0-12); NEUTROPHILS % (AUTO) 73 % (42-75); PLATELET COUNT 173 10^3/uL (130-400); RED CELL DISTRIBUTION WIDTH 13.4 % (10.0-14.5); WHITE BLOOD COUNT 9.6 10^3/uL (4.3-11.0)
--- NOTE | 2019-08-15 10:30 | NUR ---
MOM WOULD LIKE PT ADMITTED BECAUSE PT HAS NOT ATE FOR FOUR DAYS. I TALKED WITH THEM THE NEED TO STAY HYDRATED. NOTIFIED THAT HER MOTHER WOULD LIKE HER ADMITTED.
[2019-08-15 10:41] LABS: ALANINE AMINOTRANSFERASE 8 U/L (0-55); ALBUMIN 4.3 GM/DL (3.2-4.5); ALKALINE PHOSPHATASE 53 U/L (40-136); BILIRUBIN,TOTAL 0.5 MG/DL (0.1-1.0); BUN/CREATININE RATIO 16; CARBON DIOXIDE 20 MMOL/L (21-32); CHLORIDE 108 MMOL/L (98-107); CREATININE SERUM 0.67 MG/DL (0.60-1.30); GFR ESTIMATED > 60; GLUCOSE 108 MG/DL (70-105); POTASSIUM 4.1 MMOL/L (3.6-5.0); SODIUM 140 MMOL/L (135-145); TOTAL PROTEIN 6.1 GM/DL (6.4-8.2)
[2019-08-15] MEDS ORDERED: NS 100 ML (IVPB) BAG IV ONE (11:00)
[2019-08-15] MEDS ORDERED: HOLD METFORMIN - RECEIVED CONTRAST 20 ML VIAL IV SCH (11:00)
[2019-08-15] MEDS ORDERED: IOHEXOL 350 MG/ML 100 ML (OMNIPAQUE 350) VIAL IV ONE (11:00)
--- NOTE | 2019-08-15 11:10 | NUR ---
UP TO BATHROOM.
--- NOTE | 2019-08-15 11:19 | Diagnostic Imaging Report ---
PROCEDURE: CT neck soft tissue with contrast. TECHNIQUE: Multiple contiguous axial images were obtained through the neck after the administration of contrast. Auto Exposure Controls were utilized during the CT exam to meet ALARA standards for radiation dose reduction. INDICATION: Left upper dental pain. FINDINGS: No definite apical root abscesses are demonstrated. No destructive bony changes. There is some dental caries present with amalgam noted in the molars within the maxilla and mandible. No evidence of soft tissue edema or abscesses. The paranasal sinuses are clear. The parapharyngeal tissue planes appear normal. The parotid and submandibular glands appear normal. There is an enlarged lymph node anterior to the left submandibular gland measuring 1.5 x 0.7 cm. Epiglottis appears normal. Larynx is normal. There is benign calcification noted in the left lobe of the thyroid. There is good opacification of the cervical vessels following IV contrast. There is homogeneous enhancement of the thyroid gland. Reconstructed images show normal appearing cervical spine. IMPRESSION: 1. No evidence of dental abscesses or soft tissue abscess. 2. There is a single enlarged lymph node just anterior to the left submandibular gland measuring 1.5 x 0.7 cm. Dictated by: Dictated on workstation # [id number]
--- NOTE | 2019-08-15 11:27 | NUR ---
IN TALKING TO PT AT THIS TIME.
[2019-08-15] MEDS ORDERED: AMOX500C2 PO (11:46)
[2019-08-15] MEDS ORDERED: ACET-789 PO (11:46)
[2019-08-15] MEDS ORDERED: [UNRECOGNIZED DRUG - CODE] PUFF (11:46)
[2019-08-15] MEDS ORDERED: viscous lidocaine TOP (11:46)
[2019-08-15] MEDS ORDERED: NAPR-1071 PO (11:47)
[2019-08-15] MEDS ORDERED: fentaNYL INJECTION 100 MCG/2 ML AMP IVP ONE (12:00)
== END 2019-08-15 10:31 | disposition home or self-care (01) ==
LOC: EDUNIT# 09:37 → ER 09:38
DX: K04.7 Periapical abscess without sinus (principal); R59.0 Localized enlarged lymph nodes; F41.9 Anxiety disorder, unspecified; F32.9 Major depressive disorder, single episode, unspecified; K21.9 Gastro-esophageal reflux disease without esophagitis; F17.210 Nicotine dependence, cigarettes, uncomplicated; Z91.040 Latex allergy status; Z90.89 Acquired absence of other organs; Z90.49 Acquired absence of other specified parts of digestive tract; Z88.1 Allergy status to other antibiotic agents; Z88.8 Allergy status to other drugs, medicaments and biological substances; Z90.710 Acquired absence of both cervix and uterus
CPT/HCPCS: 70491; 80053; 85025; 96361; 96374; 96375

== ENCOUNTER 2019-09-01 05:52 | Emergency (ER) | payer MEDICAID ==
[~2019-09-01] VITALS: Ht 154.9 cm; Wt 50.7 kg
[~2019-09-01 05:52] MED LIST changes: +ACET-789 PO; +LIDO15SO2; +NAPR-1071 PO; +[UNRECOGNIZED DRUG - CODE] PUFF; +viscous lidocaine TOP
[2019-09-01] MEDS ORDERED: KETOROLAC 30 MG/ML VIAL IVP STA (07:22)
--- NOTE | 2019-09-01 07:30 | ED EENT ---
History of Present Illness General Chief Complaint: Dental Problems/Pain Stated Complaint: DENTAL PAIN,SWOLLEN GLANDS,NAUSEA Nursing Triage Note: REPORTS MULTIPLE ER AND DENTIST VISITS AND IS STILL HAVING PROBLEMS SUCH PAIN, SWELLING IN HER JAW AND NECK, LYMPHNODES AND STATES SHE IS ALSO HAVING NECK PAIN BECCAUSE OF THE SWELLLING. PATIENT IS TEARFUL ALERT AND ORIENTED X4, ALSO REPORTS FEVER OF 100.0 LAST NIGHT. Source: patient Exam Limitations: no limitations History of Present Illness Date Seen by Provider: Sep 01, 2019 Time Seen by Provider: 07:05 Initial Comments Here with report of body aches, lymph node swelling around the neck, nausea and fever. She's had a protracted course due to dental procedures and dental issues starting before . She did have an extraction done over a week ago to the left lower posterior tooth. She is concerned that she still has infection and the tooth is being watched by Dr. Barrera. He saw her yesterday. She is currently on ciprofloxacin for antibiotics. She has been using ibuprofen on an occasional children's Tylenol. She did have to take Zofran this morning for nausea. Last dose of ibuprofen was last night. Does have mild cough and other upper respiratory symptoms. Timing/Duration: gradual, other (3-4 weeks) Severity: moderate Location: mouth, dental Associated Symptoms: cough, facial pain/swelling, fever, nasal congestion/drainage, sore throat, tooth pain Allergies and Home Medications Allergies Coded Allergies: latex (Verified Allergy, Severe, rash, 08/15/19) clindamycin (Verified Allergy, Intermediate, 08/11/19) cephalexin (Verified Allergy, Mild, 08/11/19) iodine (Verified Allergy, Mild, 05/17/17) lorazepam (Verified Allergy, Unknown, 02/03/09) metoclopramide HCl (Verified Allergy, Unknown, 05/17/17) mirtazapine (Verified Allergy, Unknown, 02/03/09) amoxicillin (Verified Adverse Reaction, Severe, nausea, 08/15/19) clavulanic acid (Verified Adverse Reaction, Severe, nausea, 08/15/19) Home Medications Acetaminophen with Codeine 1 Each Tablet, 1 EACH PO Q6H PRN for PAIN- BREAKTHROUGH Prescribed by: BAL TORRES on 08/15/19 1146 Amoxicillin 500 Mg Capsule, 500 MG PO TID Prescribed by: BAL TORRES on 08/15/19 1146 Benzocaine 60 Ml Wilson, 1 ML PUFF Q6H PRN for PAIN-BREAKTHROUGH Prescribed by: BAL TORRES on 08/15/19 1146 Naproxen 500 Mg Tablet, 500 MG PO BID Prescribed by: BAL TORRES on 08/15/19 1147 [viscous lidocaine] 2% , 5 ML TOP Q6H PRN for PAIN-BREAKTHROUGH Prescribed by: BAL TORRES on 08/15/19 1146 Patient Home Medication List Home Medication List Reviewed: Yes Review of Systems Review of Systems Constitutional: see HPI, chills, fever, malaise Eyes: No Symptoms Reported Ears: No Symptoms Reported Nose: see HPI Mouth: see HPI Throat: see HPI; denies hoarse, denies aphonia, denies muffled Respiratory: no symptoms reported Cardiovascular: no symptoms reported Gastrointestinal: No abdominal pain, No nausea, No vomiting : No Musculoskeletal: muscle pain, neck pain Skin: No change in color, No lesions Neurological: Denies Headache, Denies Weakness All Other Systems Reviewed Negative Unless Noted: Yes Past Zyrkedp-Wvanht-Xootit Hx Past Med/Social Hx: Reviewed Nursing Past Med/Soc Hx Patient Social History Alcohol Use: Denies Use Recreational Drug Use: No Type Used: Cigarettes 2nd Hand Smoke Exposure: Yes Recent Foreign Travel: No Contact w/Someone Who Travel: No Recent Infectious Disease Expo: No Recent Hopitalizations: Yes (MONO, ANAPHYLAXIS) Physical Abuse: No Sexual Abuse: No Mistreated: No Fear: No Immunizations Up To Date Tetanus Booster (TDap): Unknown Seasonal Allergies Seasonal Allergies: No Past Medical History Surgeries: Yes (MOLES REMOVED, EGD) Adenoidectomy, Hysterectomy, Oophorectomy, Tonsillectomy Respiratory: No Currently Using CPAP: No Currently Using BIPAP: No Cardiac: No Neurological: No : No 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 0.0oz. 45.666666hu; 21.00 BMI Method:Stated General Appearance: WD/WN, mild distress Eyes: bilateral eye normal inspection, bilateral eye PERRL, bilateral eye EOMI Ears: bilateral ear auricle normal, bilateral ear canal normal, bilateral ear TM normal Nose: other (rhinorrhea and mild bilateral erythema) Mouth/Throat: No tongue swollen; other (with mild pharyngeal erythema with tenderness to the left upper and lower jaw.) Neck: lymphadenopathy (R), lymphadenopathy (L) Cardiovascular: regular rate, rhythm, no murmur Respiratory: lungs clear, normal breath sounds Gastrointestinal: non tender, soft Neurologic/Psychiatric: alert, oriented x 3 Skin: normal color, warm/dry Progress/Results/Core Measures Results/Orders Lab Results Laboratory Tests Test 09/01/19 07:20 Range/Units White Blood Count 9.8 4.3-11.0 10^3/uL Red Blood Count 4.51 4.35-5.85 10^6/uL Hemoglobin 14.4 11.5-16.0 G/DL Hematocrit 42 35-52 % Mean Corpuscular Volume 93 80-99 FL Mean Corpuscular Hemoglobin 32 25-34 PG Mean Corpuscular Hemoglobin Concent 34 32-36 G/DL Red Cell Distribution Width 13.5 10.0-14.5 % Platelet Count 224 130-400 10^3/uL Mean Platelet Volume 10.0 7.4-10.4 FL Neutrophils (%) (Auto) 74 42-75 % Lymphocytes (%) (Auto) 18 12-44 % Monocytes (%) (Auto) 6 0-12 % Eosinophils (%) (Auto) 2 0-10 % Basophils (%) (Auto) 1 0-10 % Neutrophils # (Auto) 7.3 1.8-7.8 X 10^3 Lymphocytes # (Auto) 1.8 1.0-4.0 X 10^3 Monocytes # (Auto) 0.6 0.0-1.0 X 10^3 Eosinophils # (Auto) 0.2 0.0-0.3 10^3/uL Basophils # (Auto) 0.1 0.0-0.1 10^3/uL Sodium Level 141 135-145 MMOL/L Potassium Level 3.6 3.6-5.0 MMOL/L Chloride Level 109 H 98-107 MMOL/L Carbon Dioxide Level 24 21-32 MMOL/L Anion Gap 8 5-14 MMOL/L Blood Urea Nitrogen 8 7-18 MG/DL Creatinine 0.74 0.60-1.30 MG/DL Estimat Glomerular Filtration Rate > 60 BUN/Creatinine Ratio 11 Glucose Level 97 70-105 MG/DL Calcium Level 8.8 8.5-10.1 MG/DL Corrected Calcium 8.6 8.5-10.1 MG/DL Total Bilirubin 0.5 0.1-1.0 MG/DL Aspartate Amino Transf (AST/SGOT) 12 5-34 U/L Alanine Aminotransferase (ALT/SGPT) 7 0-55 U/L Alkaline Phosphatase 54 40-136 U/L C-Reactive Protein High Sensitivity 0.36 0.00-0.50 MG/DL Total Protein 6.2 L 6.4-8.2 GM/DL Albumin 4.2 3.2-4.5 GM/DL Monoscreen NEGATIVE NEGATIVE Micro Results Microbiology 09/01/19 Influenza Types A,B Antigen ([facility]) - Final, Complete My Orders Orders - JAYASHREE GARCIA MD Cbc With Automated Diff (09/01/19 07:22) Comprehensive Metabolic Panel (09/01/19 07:22) Hs C Reactive Protein (09/01/19 07:22) Monotest (09/01/19 07:22) Influenza A And B Antigens (09/01/19 07:22) Ketorolac Injection (Toradol Injection) (09/01/19 07:22) Ed Iv/Invasive Line Start (09/01/19 07:22) Dexamethasone Injection (Decadron Inject (09/01/19 08:45) Ceftriaxone For Iv Use (Rocephin For I (09/01/19 08:45) Vital Signs/I&O 09/01/19 06:10 Temp 36.8 Pulse 87 Resp 20 B/P (MAP) 124/76 (92) Pulse Ox 96 Blood Pressure Mean: 92 Progress Progress Note : Progress Note Seen and evaluated. IV, labs, influenza screen and Toradol 15 mg IV ordered. Monitor patient. Pain better after Toradol. No significant findings on labs. We will give Rocephin 1 g IV and Decadron 10 mg IV. She is to follow-up with Dr. Barrera tomorrow. I will send a copy of the chart to him. He can decide on antibiotic changes if needed. Discharged home with return precautions. Patient verbalize understanding instructions and agreement with plan. Departure Impression Primary Impression: Upper respiratory infection Qualified Codes: J06.9 - Acute upper respiratory infection, unspecified Additional Impression: Pain, dental Disposition: 01 HOME, SELF-CARE Condition: Stable Departure-Patient Inst. Decision time for Depature: 09:07 Referrals: WILMAN LOPEZ DO (PCP/Family) Primary Care Physician Patient Instructions: Dental Pain (DC), Viral Upper Respiratory Infection, Adult (DC) Add. Discharge Instructions: All discharge instructions reviewed with patient and/or family. Voiced understanding. You may have a mixed picture of what is going on including pain related to dental procedures and/or dental abscess and possible upper respiratory infection. You may continue ibuprofen as prescribed. He may also use Tylenol/acetaminophen 650 mg every 6-8 hours as needed for fever or pain. Follow-up with Dr. Barrera tomorrow for recheck and further evaluation. Return for worse pain, fever, vomiting, weakness, breathing problems or other concerns as needed. Scripts Ibuprofen (Ibuprofen) 600 Mg Tablet 600 MG PO Q6H PRN for PAIN-MILD, #30 TAB 0 Refills Prov: JAYASHREE GARCIA MD 09/01/19 Copy Copies To 1: SOLITARIO BARRERA DDS, TIMOTHY D MD Sep 01, 2019 07:30
[2019-09-01 07:34] LABS: BASOPHILS # (AUTO) 0.1 10^3/uL (0.0-0.1); BASOPHILS % (AUTO) 1 % (0-10); EOSINOPHILS # (AUTO) 0.2 10^3/uL (0.0-0.3); EOSINOPHILS % (AUTO) 2 % (0-10); HEMATOCRIT 42 % (35-52); HEMOGLOBIN 14.4 G/DL (11.5-16.0); LYMPHOCYTES # (AUTO) 1.8 X 10^3 (1.0-4.0); LYMPHOCYTES % (AUTO) 18 % (12-44); MEAN CORPUSCULAR HEMOGLOBIN 32 PG (25-34); MEAN CORPUSCULAR HGB CONC 34 G/DL (32-36); MEAN CORPUSCULAR VOLUME 93 FL (80-99); MONOCYTES # (AUTO) 0.6 X 10^3 (0.0-1.0); MONOCYTES % (AUTO) 6 % (0-12); NEUTROPHILS # (AUTO) 7.3 X 10^3 (1.8-7.8); NEUTROPHILS % (AUTO) 74 % (42-75); PLATELET COUNT 224 10^3/uL (130-400); RED CELL DISTRIBUTION WIDTH 13.5 % (10.0-14.5); WHITE BLOOD COUNT 9.8 10^3/uL (4.3-11.0)
[2019-09-01 07:51] LABS: ALANINE AMINOTRANSFERASE 7 U/L (0-55); ALBUMIN 4.2 GM/DL (3.2-4.5); ALKALINE PHOSPHATASE 54 U/L (40-136); BILIRUBIN,TOTAL 0.5 MG/DL (0.1-1.0); BUN/CREATININE RATIO 11; CALCIUM 8.8 MG/DL (8.5-10.1); CARBON DIOXIDE 24 MMOL/L (21-32); CHLORIDE 109 MMOL/L (98-107); CREATININE SERUM 0.74 MG/DL (0.60-1.30); GFR ESTIMATED > 60; GLUCOSE 97 MG/DL (70-105); POTASSIUM 3.6 MMOL/L (3.6-5.0); SODIUM 141 MMOL/L (135-145); TOTAL PROTEIN 6.2 GM/DL (6.4-8.2)
--- NOTE | 2019-09-01 08:39 | NUR ---
IN TALKING TO PT AT THIS TIME.
[2019-09-01] MEDS ORDERED: DEXAMETHASONE 10 MG/ML (DECADRON) 1 ML VIAL IV ONE (08:45)
[2019-09-01] MEDS ORDERED: cefTRIAXone FOR IV USE 1,000 MG in WATER (STERILE) FOR INJECTION 10 ML IV ONE (08:45)
[2019-09-01] MEDS ORDERED: IBUP-1773 PO (09:09)
[2019-09-01 09:30] VITALS: BP 104/71
== END 2019-09-01 09:29 | disposition home or self-care (01) ==
LOC: EDUNIT# 05:52 → ER 05:54
DX: J06.9 Acute upper respiratory infection, unspecified (principal); K08.89 Other specified disorders of teeth and supporting structures; K21.9 Gastro-esophageal reflux disease without esophagitis; F41.9 Anxiety disorder, unspecified; F32.9 Major depressive disorder, single episode, unspecified; Z91.040 Latex allergy status; Z88.1 Allergy status to other antibiotic agents; Z88.8 Allergy status to other drugs, medicaments and biological substances; Z88.0 Allergy status to penicillin; Z77.22 Contact with and (suspected) exposure to environmental tobacco smoke (acute) (chronic); Z90.89 Acquired absence of other organs; Z90.710 Acquired absence of both cervix and uterus
CPT/HCPCS: 36415; 80053; 85025; 86141; 86308; 87804; 96374; 96375

== ENCOUNTER → 2019-10-08 | Outpatient (CLI) | payer MEDICAID ==
[~2019-10-08] MED LIST changes: +IBUP-1773 PO
--- NOTE | 2019-10-08 16:08 | Diagnostic Imaging Report ---
PROCEDURE: CT neck soft tissue without contrast. TECHNIQUE: Multiple contiguous axial images were obtained through the neck without the use of intravenous contrast. Auto Exposure Controls were utilized during the CT exam to meet ALARA standards for radiation dose reduction. INDICATION: Left facial pain. History of left dental abscess. COMPARISON: Comparison is made with a prior exam from August 15, 2019. FINDINGS: The visualized intracranial contents demonstrate a calcified extra-axial density overlying the left temporal lobe, most compatible with meningioma and not significantly changed from prior [address] This measures approximately 9 x 6 x 10 mm. There is no adjacent edema evident. Intracranial contents are otherwise unremarkable. Mastoids and middle ears appear clear. The paranasal sinuses are clear. The orbital contents are unremarkable. There are no findings of aggressive bone destruction within the mandible or the maxilla. There have been prior wisdom teeth extraction. There are no periapical lucencies evident about the residual teeth. There are no findings of a soft tissue abscess within the regional soft tissues. Small submandibular and submental lymph nodes remain present. No pathologically enlarged lymph nodes are evident. The parotid and submandibular glands appear normal. The posterior nasopharynx and oropharynx are appropriate. There is no displacement of the parapharyngeal fat planes or abnormal process within the prevertebral and retropharyngeal space. There is no thickening of the epiglottis. The vocal folds are symmetric. There is a tiny calcified left thyroid nodule. The lung apices appear clear. Cervical spine demonstrates no significant abnormality. IMPRESSION: 1. No significant inflammatory changes evident about the maxilla or mandible. There are no findings of a soft tissue abscess. There are small non-pathologically enlarged regional lymph nodes. There have been prior wisdom teeth extractions, but no aggressive bone changes within the mandible or maxilla or periapical lucency evident about the residual teeth. 2. Aerodigestive tract appears approximately symmetric. 3. Small left lateral temporal meningioma. Dictated by: Dictated on workstation # [id number]
== END ==
LOC: RAD 13:55
PROVIDERS: ATTEND Internal Medicine
DX: R51 Headache (principal); D49.7 Neoplasm of unspecified behavior of endocrine glands and other parts of nervous system
CPT/HCPCS: 70490

== ENCOUNTER 2020-02-22 22:46 | Emergency (ER) | payer MEDICAID ==
[~2020-02-22] VITALS: Ht 154 cm; Wt 50.0 kg
[~2020-02-22 22:46] MED LIST changes: -LIDO15SO2; +LIDO20SO23; -ONDA8TAB12 PO; +ONDA8TAB15 PO
[2020-02-22] MEDS ORDERED: LACTATED RINGERS 1,000 ML IV ONE ×2 (23:14→23:15)
[2020-02-22] MEDS ORDERED: ONDANSETRON 4 MG/2 ML (SDV) Z0FRAN IVP ONE (23:15)
[2020-02-22] MEDS ORDERED: KETOROLAC 30 MG/ML VIAL IVP ONE (23:15)
[2020-02-22] MEDS ORDERED: ORPHENADRINE 60 MG/2 ML (NORFLEX) AMP (ED ONLY) IV ONE (23:15)
--- NOTE | 2020-02-22 23:21 | ED Back Pain ---
General Chief Complaint: General Problems/Pain Stated Complaint: BACK PAIN, BI LATERAL PAIN Nursing Triage Note: Pt complaining of head pain and back pain x 2 wks after a resident fell onto her and pt fell on back onto concrete. Pt reports takng ibuprofen for pain with minimal relief. Nursing Sepsis Screen: No Definite Risk Source of Information: Patient Exam Limitations: No Limitations History of Present Illness Date Seen by Provider: Feb 22, 2020 Time Seen by Provider: 22:55 Initial Comments Patient presents to ER by private conveyance from home with chief complaint of back pain radiating down bilateral legs left leg lower than the knee. Right leg to the buttock. Also having pain in the thoracic back. 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 She seen occupational health twice and was put on cyclobenzaprine and NSAIDs. She has not been routinely taking the NSAIDs because she says she has a bad history of stomach disorders related to her history of H. pylori. She's not having any GERD presently. She does have some nausea which is new tonight area and she has not vomited. No fevers or chills. She saw Dr. Lopez her primary care doctor Dontae, 5 days ago and he gave her a shot of Depo-Medrol. She does not feel it is gotten any better. She does not like to cyclobenzaprine as it makes her drowsy. She did take Tylenol however that did not take her pain away. She has not been to physical therapy or had any imaging done. She was released to go back to work for occupational health last week. She did call to get an appointment today but has not heard back from them yet. She denies loss of control of bowel or bladder, urinary hesitancy, numbness or tingling, saddle anesthesia, falls related to weakness. Allergies and Home Medications Allergies Coded Allergies: latex (Verified Allergy, Severe, rash, 08/15/19) clindamycin (Verified Allergy, Intermediate, 08/11/19) cephalexin (Verified Allergy, Mild, 08/11/19) iodine (Verified Allergy, Mild, 05/17/17) lorazepam (Verified Allergy, Unknown, 02/03/09) metoclopramide HCl (Verified Allergy, Unknown, 05/17/17) mirtazapine (Verified Allergy, Unknown, 02/03/09) amoxicillin (Verified Adverse Reaction, Severe, nausea, 08/15/19) clavulanic acid (Verified Adverse Reaction, Severe, nausea, 08/15/19) Home Medications Acetaminophen with Codeine 1 Each Tablet, 1 EACH PO Q6H PRN for PAIN- BREAKTHROUGH Prescribed by: BAL TORRES on 08/15/19 1146 Amoxicillin 500 Mg Capsule, 500 MG PO TID Prescribed by: BAL TORRES on 08/15/19 1146 Benzocaine 60 Ml [place], 1 ML PUFF Q6H PRN for PAIN-BREAKTHROUGH Prescribed by: BAL TORRES on 08/15/19 1146 Ibuprofen 600 Mg Tablet, 600 MG PO Q6H PRN for PAIN-MILD Prescribed by: JAYASHREE GARCIA on 09/01/19 0909 Naproxen 500 Mg Tablet, 500 MG PO BID Prescribed by: BAL TORRES on 08/15/19 1147 Ondansetron 4 Mg Tab.rapdis, 4 MG PO Q6H PRN for NAUSEA/VOMITING Prescribed by: BAL TORRES on 02/22/20 2328 [viscous lidocaine] 2% , 5 ML TOP Q6H PRN for PAIN-BREAKTHROUGH Prescribed by: BAL TORRES on 08/15/19 1146 Patient Home Medication List Home Medication List Reviewed: Yes Review of Systems Constitutional: No chills, No diaphoresis EENTM: No ear discharge, No ear pain Respiratory: No cough, No short of breath Cardiovascular: No chest pain, No palpitations Gastrointestinal: No abdominal pain, No nausea Genitourinary: No decreased output, No discharge, No dysuria, No frequency, No hematuria : No Control/STD Prophylaxis: Other (hysterectomy) Musculoskeletal: back pain; No joint pain All Other Systems Reviewed Negative Unless Noted: Yes Past Cimkthj-Ghetqh-Ktijtz Hx Patient Social History Smoking Status: Current Everyday Smoker Type Used: Cigarettes 2nd Hand Smoke Exposure: Yes Recent Foreign Travel: No Contact w/Someone Who Travel: No Recent Infectious Disease Expo: No Recent Hopitalizations: Yes (MONO, ANAPHYLAXIS) Immunizations Up To Date Tetanus Booster (TDap): Unknown Seasonal Allergies Seasonal Allergies: No Past Medical History Surgeries: Yes (MOLES REMOVED, EGD) Adenoidectomy, Hysterectomy, Oophorectomy, Tonsillectomy Respiratory: No Currently Using CPAP: No Currently Using BIPAP: No Cardiac: No Neurological: No 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 0.0oz. 45.979383jg; 21.00 BMI Method:Stated General Appearance: WD/WN, Mild Distress HEENT: PERRL/EOMI, Pharynx Normal, Moist Mucous Membranes Neck: Full Range of Motion, Normal Inspection Cardiovascular: Regular Rate, Rhythm, No Edema, Normal Peripheral Pulses Respiratory: No Accessory Muscle Use, No Respiratory Distress Peripheral Pulses: 2+ Dorsalis Pedis (R), 2+ Left Dors-Pedis (L), 2+ Radial Pulses (R), 2+ Radial Pulses (L) Gastrointestinal: Normal Bowel Sounds, Non Tender, Soft Back: Normal Inspection, No Vertebral Tenderness (all distracted the patient has no midline vertebral tenderness however she does have quite a bit of paraspinal muscle tenderness to palpation), Muscle Spasm (bilateral) Extremity: Normal Capillary Refill, Normal Inspection, Normal Range of Motion, No Pedal Edema Neurologic/Psychiatric: Alert, Oriented x3, No Motor/Sensory Deficits Skin: Normal Color, Warm/Dry Progress/Results/Core Measures Results/Orders Lab Results Laboratory Tests Test 02/23/20 00:30 Range/Units Urine Color YELLOW Urine Clarity CLEAR Urine pH 8.0 5-9 Urine Specific [place] 1.010 L 1.016-1.022 Urine Protein NEGATIVE NEGATIVE Urine Glucose (UA) NEGATIVE NEGATIVE Urine Ketones TRACE H NEGATIVE Urine Nitrite NEGATIVE NEGATIVE Urine Bilirubin NEGATIVE NEGATIVE Urine Urobilinogen 0.2 < = 1.0 MG/DL Urine Leukocyte Esterase NEGATIVE NEGATIVE Urine RBC (Auto) NEGATIVE NEGATIVE Urine RBC NONE /HPF Urine WBC NONE /HPF Urine Squamous Epithelial Cells 0-2 /HPF Urine Crystals NONE /LPF Urine Bacteria NEGATIVE /HPF Urine Casts NONE /LPF Urine Mucus NEGATIVE /LPF Urine Culture Indicated NO Urine Opiates Screen NEGATIVE NEGATIVE Urine Oxycodone Screen NEGATIVE NEGATIVE Urine Methadone Screen NEGATIVE NEGATIVE Urine Propoxyphene Screen NEGATIVE NEGATIVE Urine Barbiturates Screen NEGATIVE NEGATIVE Ur Tricyclic Antidepressants Screen NEGATIVE NEGATIVE Urine Phencyclidine Screen NEGATIVE NEGATIVE Urine Amphetamines Screen NEGATIVE NEGATIVE Urine Methamphetamines Screen NEGATIVE NEGATIVE Urine Benzodiazepines Screen NEGATIVE NEGATIVE Urine Cocaine Screen NEGATIVE NEGATIVE Urine Cannabinoids Screen NEGATIVE NEGATIVE My Orders Orders - BAL TORRES Ct Thoracic/Lumbar Spine Wo (02/22/20 23:11) Ondansetron Injection (Zofran Injectio (02/22/20 23:15) Orphenadrine Inj (Ed Only) (Norflex Inje (02/22/20 23:15) Ketorolac Injection (Toradol Injection) (02/22/20 23:15) Ed Iv/Invasive Line Start (02/22/20 23:15) Lactated Ringers (Lr 1000 Ml Iv Solution (02/22/20 23:15) Lactated Ringers (Lr 1000 Ml Iv Solution (02/22/20 23:14) Ua Culture If Indicated (02/23/20 00:32) Drug Screen Stat (Urine) (02/23/20 00:32) Hydrocodone/Apap 5/325 Tablet (Lortab 5 (02/23/20 01:15) Hydrocodone/Apap 5/325 Tablet (Lortab 5 (02/23/20 01:02) Acetaminophen/Codeine Tablet (Tylenol W/ (02/23/20 01:15) Acetaminophen/Codeine Tablet (Tylenol W/ (02/23/20 01:07) Medications Given in ED Current Medications Medications Dose Ordered Sig/Jerson Route Start Time Stop Time Status Last Admin Dose Admin Ketorolac Tromethamine 30 mg ONCE ONCE IVP 02/22/20 23:15 02/22/20 23:16 DC 02/22/20 23:20 30 MG Lactated Ringer's 1,000 ml @ 0 mls/hr Q0M ONCE IV 02/22/20 23:15 02/22/20 23:17 DC 02/22/20 23:20 1,000 MLS/HR Ondansetron HCl 4 mg ONCE ONCE IVP 02/22/20 23:15 02/22/20 23:16 DC 02/22/20 23:20 4 MG Orphenadrine Citrate 60 mg ONCE ONCE IV 02/22/20 23:15 02/22/20 23:16 DC 02/22/20 23:20 60 MG Vital Signs/I&O 02/22/20 02/23/20 22:58 01:34 Temp 36.6 36.6 Pulse 110 98 Resp 18 18 B/P (MAP) 137/86 (103) 128/82 (103) Pulse Ox 97 97 O2 Delivery Room Air Room Air Blood Pressure Mean: 103 Progress Progress Note #1: Time: 23:20 Progress Note The patient's had a hysterectomy. We'll get a urinalysis to rule out bladder infection. Despite steroids and an adequate NSAIDs she is still having pain 2 weeks out so would not be unreasonable to get CT of her thoracic or lumbar spine to rule out occult fracture. She says she does not eat or drink very well and feels dehydrated and would like a bag of fluids so we have ordered a liter of lactated Ringer's. Toradol, Zofran and Norflex ordered for her discomfort. Progress Note #2: Time: 00:34 Progress Note Patient was able to produce some urine. Sent it down for urinalysis. Progress Note #3: Time: 00:58 Progress Note Urinalysis reveals no evidence of infection. There is some minor ketones. She is received about half of her liter fluids. We'll let her get the rest of them. She states her pain has not improved since she's been here. She was sleeping in the bed earlier. CT is unremarkable for any fractures or significant changes. We have encouraged her to use heating pads, topical creams and back brace. We have also tried to set her expectations that she should know she is not going to be pain-free immediately. We did review prescription management software and the patient does not have a lot of use opiates. Plan to give her a single dose of hydrocodone since she says she still in a lot of pain and have her follow-up tomorrow with her primary doctor. Progress Note #4: Time: 01:08 Progress Note The patient declined hydrocodone stating that it makes her stomach upset despite Zofran. Offered Tylenol 3 which she refused because she says it made her feel crazy the last time she took it. Patient says she has an allergy to Dilaudid. We have encouraged her to go home and take some ibuprofen. Diagnostic Imaging Diagonstic Imaging: CT Plain Films/CT/US/NM/MRI: other (thoracolumbar spine) Comments Thoracic spine: No fracture or malalignment. Lumbar spine: no fracture or malalignment. Reviewed: Reviewed [place] Study, Reviewed by Me Departure Impression Primary Impression: Lumbago with sciatica Qualified Codes: M54.42 - Lumbago with sciatica, left side; M54.41 - Lumbago with sciatica, right side Disposition: HOME, SELF-CARE Condition: Stable Departure-Patient Inst. Decision time for Depature: 00:50 Referrals: WILMAN LOPEZ DO (PCP/Family) Primary Care Physician Patient Instructions: Sciatica Add. Discharge Instructions: Obtain a back brace if you don't have one and wear it on the days that it helps. Ibuprofen 800 mg every 8 hours or naproxen 1-2 tablets twice a day on a scheduled basis. Continue taking your stomach medications. Plan follow-up with your primary care doctor or occupational health which ever is appropriate. Tylenol 1000 mg every 8 hours as necessary for pain. If you have muscle spasms or you feel like your back is tight and difficult to move then you need to take the cyclobenzaprine 1 tablet every 8 hours as prescribed if necessary.. Use heating pads. Topical creams such as icy hot, Biofreeze or lidocaine topical patches can be helpful. Ondansetron one tablet every 6 hours as necessary for nausea or vomiting placed under the tongue. All discharge instructions reviewed with patient and/or family. Voiced understanding. Scripts Ondansetron (Ondansetron Odt) 4 Mg Tab.rapdis 4 MG PO Q6H PRN for NAUSEA/VOMITING, #8 TAB 0 Refills Prov: BAL TORRES 02/22/20 Work/School Note: Work Release Form Date Seen in the Emergency Department: Feb 22, 2020 Return to Work: Feb 24, 2020 Restrictions: Need Release from Doctor Other Restrictions Listed Below: Do not lift more than 20 pounds until 03/01/20. BAL TORRES Feb 22, 2020 23:21
[2020-02-22] MEDS ORDERED: ONDA4TAB11 PO (23:28)
[2020-02-23 00:43] LABS: BILIRUBIN,URINE NEGATIVE (NEGATIVE); CLARITY,URINE CLEAR; COLOR,URINE YELLOW; GLUCOSE, URINE (UA) NEGATIVE (NEGATIVE); KETONES,URINE TRACE (NEGATIVE); LEUKOCYTE ESTERASE ,URINE NEGATIVE (NEGATIVE); NITRITE,URINE NEGATIVE (NEGATIVE); PROTEIN,URINE NEGATIVE (NEGATIVE)
[2020-02-23 00:52] LABS: BACTERIA,URINE NEGATIVE /HPF; SQUAMOUS EPITHELIAL CELL,UR 0-2 /HPF
[2020-02-23] MEDS ORDERED: HYDROcodone/APAP 5 MG/325 MG (LORTAB) TAB ONE (01:02)
[2020-02-23 01:03] LABS: AMPHETAMINE SCREEN, URINE NEGATIVE (NEGATIVE); BARBITURATE SCREEN URINE NEGATIVE (NEGATIVE); BENZODIAZEPINES SCREEN URINE NEGATIVE (NEGATIVE); CANNABINOID SCREEN, URINE NEGATIVE (NEGATIVE); COCAINE SCREEN URINE NEGATIVE (NEGATIVE); METHADONE STAT NEGATIVE (NEGATIVE); METHAMPHETAMINE SCREEN URINE S NEGATIVE (NEGATIVE); OPIATE SCREEN URINE NEGATIVE (NEGATIVE); OXYCODONE STAT NEGATIVE (NEGATIVE); PROPOXYPHENE STAT NEGATIVE (NEGATIVE); TRICYCLIC ANTIDEPRESSANTS SCRE NEGATIVE (NEGATIVE)
[2020-02-23] MEDS ORDERED: APAP 300 MG/CODEINE 30 MG (TYLENOL #3) TAB PO ONE ×2 (01:07→01:15)
[2020-02-23] MEDS ORDERED: HYDROcodone/APAP 5 MG/325 MG (LORTAB) TAB PO ONE (01:15)
[2020-02-23 01:34] VITALS: BP 128/82
--- NOTE | 2020-02-23 06:29 | Diagnostic Imaging Report ---
PROCEDURE: CT thoracic and lumbar spine without contrast. TECHNIQUE: Multiple contiguous axial images were obtained through the thoracic and lumbar spine without the use of intravenous contrast. Sagittal and coronal reformations were then performed.All CT scans use one or more of the following dose optimizing techniques: automated exposure control, MA and/or KvP adjustment based on a patient size and exam type, or iterative reconstruction. INDICATION: Back pain. Fell 2 weeks ago. History of remote hysterectomy. FINDINGS: Sagittal and coronal reformatted images of the thoracic and lumbar spine show good alignment. No evidence of pars defect. There are no compression fractures. No fractures of the posterior elements. Spinal canal is widely patent. No significant degenerative disc disease demonstrated. The paraspinal soft tissues appear normal. IMPRESSION: No acute abnormalities demonstrated of the thoracic or lumbar spine. These findings are concordant with the preliminary report. Dictated by: Dictated on workstation # [id number]
== END 2020-02-23 01:37 | disposition home or self-care (01) ==
LOC: EDUNIT# 22:46 → ER 22:47
DX: M54.42 Lumbago with sciatica, left side (principal); M54.41 Lumbago with sciatica, right side; F17.210 Nicotine dependence, cigarettes, uncomplicated; Z91.040 Latex allergy status; Z88.1 Allergy status to other antibiotic agents; Z88.8 Allergy status to other drugs, medicaments and biological substances
CPT/HCPCS: 72128; 72131; 80306; 81000

== ENCOUNTER → 2020-02-23 | Outpatient (CLI) | payer OTHER, MEDICAID ==
[~2020-02-23] MED LIST changes: +ONDA4TAB11 PO
[2020-02-23 16:59] LABS: ALANINE AMINOTRANSFERASE 7 U/L (0-55); ALBUMIN 4.5 GM/DL (3.2-4.5); ALKALINE PHOSPHATASE 56 U/L (40-136); BILIRUBIN,TOTAL 0.7 MG/DL (0.1-1.0); BUN/CREATININE RATIO 10; CALCIUM 8.5 MG/DL (8.5-10.1); CARBON DIOXIDE 21 MMOL/L (21-32); CHLORIDE 108 MMOL/L (98-107); CREATININE SERUM 0.68 MG/DL (0.60-1.30); GFR ESTIMATED > 60; GLUCOSE 123 MG/DL (70-105); LIPASE 13 U/L (8-78); POTASSIUM 3.4 MMOL/L (3.6-5.0); SODIUM 138 MMOL/L (135-145); TOTAL PROTEIN 6.4 GM/DL (6.4-8.2)
[2020-02-23 19:06] LABS: CSF GLUCOSE 54 MG/DL (50-80)
[2020-02-23 19:38] LABS: CSF TOTAL PROTEIN 214 MG/DL (15-40)
== END ==
LOC: LABNPT 16:30
PROVIDERS: ATTEND Nurse Practitioner Family
DX: Z01.89 Encounter for other specified special examinations (principal)
CPT/HCPCS: 80053; 82945; 83605; 83690; 83735; 84157